=== PATIENT | female | born 1970 | race Caucasian/White ===

== ENCOUNTER 2021-05-26 15:47 | Outpatient (REF) | payer BC, SELFPAY ==
[2021-05-28 11:01] LABS: COVID-19 RT-PCR UVMMC Result Negative (Negative)
== END 2021-05-26 15:48 | disposition home or self-care (01) ==
LOC: LBN 15:47
PROVIDERS: Visit Provider Physician Assistant Medical
DX: Z20.822 Contact with and (suspected) exposure to COVID-19 (principal); J06.9 Acute upper respiratory infection, unspecified
CPT/HCPCS: U0003

== ENCOUNTER 2021-06-23 05:50 | Observation (INO) | payer BC, SELFPAY ==
[2021-06-23] VITALS (27 sets, daily range): BP systolic 109–184; BP diastolic 49–147; PULSE 69–117; RESP 8–30; TEMP 36.4–37.1; O2SAT 0–100
--- NOTE | 2021-06-23 06:00 | RT.EKG_ITS ---
APPROVED REPORT Exam: Resting ECG Reason for Exam: sob Patient Location: E HR:78 bpm ECG Measurements Heart Rate 78 AXIS IA 192 P 57 QRSd 89 QRS 55 QT 406 T 32 QTc 462 Conclusion Sinus rhythm...normal P axis, V-rate 60- 99 Physician: No stemi, unremarkable
--- NOTE | 2021-06-23 06:15 | DI.RAD_ITS ---
Exam(s) XR PORTABLE CHEST AP EXAM: XR PORTABLE CHEST AP CLINICAL HISTORY: sob, cough. TECHNIQUE: 2D digital imaging was performed. COMPARISON: No exams were available for comparison FINDINGS: Heart size is upper normal. The mediastinum is not widened. Right lung is clear. Density in left upper lobe region appears to be healing fracture site of the 6t h rib. However, there is mild increased markings in left lung base-left costophrenic angle and sligh t blunting of left costophrenic angle. IMPRESSION: Left lung base findings as above. Recommend nonportable PA and lateral views when clinically possibl e. DATA REPOSITORY: RADIATION DOSE DELIVERED: All CT scans at this facility use at least one of these dose optimization techniques: automated exposure control; mA and/or kV adjustment per patient size (includes targeted e xams where dose is matched to clinical indication); or iterative reconstruction.
--- NOTE | 2021-06-23 06:17 | W.ED.GENAD ---
Discharge Plan Disposition Patient Disposition: [facility] INPATIENT Condition: Improving Discharge Details Clinical Impression: Asthma exacerbation in COPD, Community acquired pneumonia, Hypoxemia ED Provider: Valeriano Pitts Home Meds and New Rx's Prescriptions: No Action citalopram 20 mg Tablet 20 mg PO DAILY RF: 0 albuterol sulfate [Ventolin HFA] 90 mcg/actuation Hfa Aerosol Inhaler 2 puff INHALATION Q4H PRNRF: 0 guaifenesin [Mucinex] 600 mg Tablet Extended Release 12hr 600 mg PO PRN PRNRF: 0 Medical Decision Making This is a 51-year-old female with a past medical history of mild asthma, who recently moved up here from [facility], who presents today for evaluation of cough and difficulty breathing. Patient states that for the last 2 to 3 days she has had a mild cough which has been nonproductive. Over the last 24 to 48 hours she has had a notable increased work of breathing and difficulty breathing. She has been taking her inhaler, but has had no improvement with this. She admits to a central chest pain, which she described as a tightness. Symptoms are made worse when she tries to cough her breathing deeply. Patient states that symptoms feel similar to previous asthma attacks in the past. She denies any heart disease or history of heart disease. No family history of heart disease at a young age. She does have a history of tobacco use, but did quit smoking a few days ago. She denies any other sick contacts. She has had her Covid vaccine/Pfizer/both doses. She denies any vomiting, diarrhea, long trips, surgeries, procedures, calf pain, fever. No other complaints at this time. No other modifying factors. Physical exam demonstrates diffuse wheezes throughout. On the patient's initial assessment oxygen was in the high 80s, this improved with 2 L of supplemental oxygen. Suspect asthma/COPD exacerbation. Will check for Covid, get chest x-ray, give breathing treatments and steroids, monitor closely and reassess. EKG shows no evidence of STEMI or other significant abnormality. 7:45 AM Chest x-ray per virtual radiology shows evidence concerning for atelectasis versus pneumonia. Work-up demonstrates mild white count of 14, electrolytes stable, VBG stable, troponin normal. Covid test negative. Patient remains at 90% to 92% on 2 L of supplemental oxygen. She feels slightly improved after breathing treatments but still remains mildly hypoxic. She does not use home oxygen. The patient's low oxygenation, her evidence of asthma/COPD exacerbation in conjunction with her community-acquired pneumonia I do feel she would be a good candidate for inpatient admission for continued IV antibiotics breathing treatments and supplemental oxygen as needed. Patient has been given ceftriaxone and doxycycline IV here. We will contact the hospitalist for admission. 7:50 AM Discussed the case with the hospitalist , he agrees with the assessment and plan. I will place admission orders on his behalf. I have extensively reviewed the treatment plan with the patient. I have addressed all patient concerns at this time. I have also discussed the plan with the admitting physician and they agree with the current assessment and plan and have agreed to assume responsibility for the patient. All parties demonstrate verbal understanding and agreement with our assessment and plan at this time. The documentation in this chart was dictated using [employer] dictation software. Please excuse any dictation errors. FINDINGS: Lungs: Patchy pulmonary opacity noted in the left upper lobe as well as at the lung bases. Consider atelectasis and or pneumonia. Follow-up imaging is recommended specifically for the left upper lobe process to ensure resolution as a pulmonary mass is not excluded. Pleural spaces: Unremarkable. No pleural effusion. No pneumothorax. Heart/Mediastinum: Unremarkable. No cardiomegaly. Bones/joints: Unremarkable. IMPRESSION: Patchy pulmonary opacity noted in the left upper lobe as well as at the lung bases. Consider atelectasis and or pneumonia. Follow-up imaging is recommended specifically for the left upper lobe process to ensure resolution as a pulmonary mass is not excluded. Thank you for allowing us to participate in the care of your patient. Dictated and Authenticated by: Rafael Nettles MD 06/23/2021 6:45 AM Eastern Time ([place] & [place]) HPI General Date/Time Provider Initiated Documentation: 06/23/21 06:06. HPI Narrative: This is a 51-year-old female with a past medical history of mild asthma, who recently moved up here from [facility], who presents today for evaluation of cough and difficulty breathing. Patient states that for the last 2 to 3 days she has had a mild cough which has been nonproductive. Over the last 24 to 48 hours she has had a notable increased work of breathing and difficulty breathing. She has been taking her inhaler, but has had no improvement with this. She admits to a central chest pain, which she described as a tightness. Symptoms are made worse when she tries to cough her breathing deeply. Patient states that symptoms feel similar to previous asthma attacks in the past. She denies any heart disease or history of heart disease. No family history of heart disease at a young age. She does have a history of tobacco use, but did quit smoking a few days ago. She denies any other sick contacts. She has had her HeadMix vaccine/Pfizer/both doses. She denies any vomiting, diarrhea, long trips, surgeries, procedures, calf pain, fever. No other complaints at this time. No other modifying factors. Related Data Home Medications Medication Instructions Recorded Confirmed albuterol sulfate [Ventolin HFA] 2 puff INHALATION Q4H PRN 06/23/21 06/23/21 citalopram 20 mg PO DAILY 06/23/21 06/23/21 guaifenesin [Mucinex] 600 mg PO PRN PRN 06/23/21 06/23/21 Allergies Allergy/AdvReac Type Severity Reaction Status Date / Time No Known Allergies Allergy Unverified 06/23/21 06:05 General Stated Complaint: SOB APOLLO: 3 Review of Systems All systems reviewed & are unremarkable except as noted in HPI and below PFSH Active Problem List (Updated 06/23/21 @ 07:47 by Valeriano Pitts DO) Asthma exacerbation in COPD (Acute) Community acquired pneumonia (Acute) Hypoxemia (Acute) Social History Smoking/Tobacco Use Status: Former Tobacco Use Quit Date: 06/21/21 Tobacco: How many years used: 20 Smoking risk assessment performed?: Yes Drug use: Never Substance use type: marijuana Do you feel safe at home: Yes Do you feel safe in your relationship?: Yes Exam Narrative Exam Narrative: 1.Const: Well-nourished, Well-developed, appearing stated age 2.Eyes: PERRL, no conjunctival injection, and symmetrical lids. 3.ENT: Atraumatic external nose and ears. Moist MM. Neck: Symmetric, trachea midline, No thyromegaly. 4.CVS: +S1/S2, No murmurs or gallops. Peripheral pulses 2+ and equal in all extremities. Brisk capillary refill in all extremities. 5.RESP: Diffuse wheezes throughout, mild labored respiratory effort. 6.GI: Soft, Nontender/Nondistended, No hepatosplenomegaly. No guarding or rebound. 7.MSK: Normocephalic/Atraumatic, Extremities w/o deformity or ttp No cyanosis or clubbing, Normal movement of all extremities 8.Skin: Warm, Dry. No rashes or lesions. 9.Neuro: contact center agent II-XII grossly intact. Sensation grossly intact, no focal neurologic deficits. 10.Psych: (AAO) x3. Appropriate mood and affect Course Vital Signs Vital signs: Vital Signs Temperature 36.4 C L 06/23/21 06:01 Pulse 86 06/23/21 06:01 Respiratory Rate 30 H 06/23/21 06:01 Blood Pressure 184/147 H 06/23/21 06:01 Pulse Oximetry 84 L 06/23/21 06:01 Temperature 36.4 C L 06/23/21 06:01 Temperature Source Temporal Artery Scan 06/23/21 06:01 Pulse 86 06/23/21 06:01 Respiratory Rate 30 H 06/23/21 06:07 Respiratory Effort Labored 06/23/21 06:07 Respiratory Depth Deep 06/23/21 06:07 Respiratory Pattern Tachypnea 06/23/21 06:07 Blood Pressure 184/147 H 06/23/21 06:01 Blood Pressure Position Sitting 06/23/21 06:01 Pulse Oximetry 84 L 06/23/21 06:01 Oxygen Delivery Method Room Air 06/23/21 06:01 Oxygen Flow Rate 0 06/23/21 06:01 Pain Level 8 06/23/21 06:01
[2021-06-23 06:28] LABS: Source Nasal/Nares
[2021-06-23 06:30] LABS: BE (Venous) 2 mmol/L (-2-3); HCO3 (Venous) 28 mmol/L (23-28); O2 Sat (Venous) 58 %; TCO2 (Venous) 25 mmol/L (24-29); pCO2 (Venous) 50 mmHg (41-51); pH (Venous) 7.36 (7.31-7.41); pO2 (Venous) 32 mmHg
[2021-06-23] MEDS: Normal Saline 500 ML IV (06:30)
[2021-06-23 06:32] LABS: Abs Immature Grans 0.09 10^3/uL (0.0-0.06); Absolute Basophil Count 0.13 10^3/uL (0.0-0.2); Absolute Eosinophil Count 0.78 10^3/uL (0.0-0.7); Absolute Lymphocyte Count 2.51 10^3/uL (1.2-3.4); Absolute Monocyte Count 0.97 10^3/uL (0.1-0.8); Basophils % 0.9; Eosinophils % 5.4; HCT 43.4 % (36.0-46.0); Immature Grans % 0.6; Lymphocytes % 17.3; MCH 30.8 pg (27.0-33.0); MCHC 32.3 % (32.0-36.0); MCV 95.6 fL (80-95); MPV 9.6 fL (8.0-11.0); Monocytes % 6.7; Neutrophils % 69.1; Nucleated RBC 0 %; Platelet Count 345 10^3/uL (130-400); RBC 4.54 10^6/uL (3.93-5.22); RDW 13.2 % (11.7-14.6); RDW-SD 46.5 fL; WBC 14.53 10^3/uL (4.4-10.8)
[2021-06-23 06:33] LABS: Absolute Neutrophil Count 10.04 10^3/uL (1.2-6.7)
[2021-06-23] MEDS: methylPREDNISolone SUCC 125 MG VIAL IVP (06:36)
[2021-06-23] MEDS: Albuterol/Ipratropium 3 ML UPD VIAL 9 ML UPD (06:37)
--- NOTE | 2021-06-23 06:46 | DI.VRAD_ITS ---
PROCEDURE INFORMATION: Exam: XR Chest Exam date and time: 06/23/2021 6:16 AM Age: 51 years old Clinical indication: Other: SOB TECHNIQUE: Imaging protocol: XR of the chest. Views: 1 view. COMPARISON: No relevant prior studies available. FINDINGS: Lungs: Patchy pulmonary opacity noted in the left upper lobe as well as at the lung bases. Consider atelectasis and or pneumonia. Follow-up imaging is recommended specifically for the left upper lobe process to ensure resolution as a pulmonary mass is not excluded. Pleural spaces: Unremarkable. No pleural effusion. No pneumothorax. Heart/Mediastinum: Unremarkable. No cardiomegaly. Bones/joints: Unremarkable. IMPRESSION: Patchy pulmonary opacity noted in the left upper lobe as well as at the lung bases. Consider atelectasis and or pneumonia. Follow-up imaging is recommended specifically for the left upper lobe process to ensure resolution as a pulmonary mass is not excluded. Dictated and Authenticated by: Rafael Nettles MD. Ordering:JULIÁN Bal MD
[2021-06-23 06:48] LABS: ALT 30 U/L (14-59); AST 22 U/L (15-37); Albumin 3.9 g/dL (3.4-5.0); Alkaline Phosphatase 75 U/L (46-116); Anion Gap 10.2 mmol/L (3-11); BUN 13 mg/dL (7-18); Bilirubin, Total 0.9 mg/dL (0.2-1.0); CO2 27.8 mmol/L (21.0-32.0); CREATININE 0.7 mg/dL (0.55-1.02); Calcium 9.2 mg/dL (8.5-10.1); Chloride 102 mmol/L (98-107); Glucose 114 mg/dL (74-106); Potassium 4.2 mmol/L (3.5-5.1); Sodium 140 mmol/L (136-145); Total Protein 8.3 g/dL (6.4-8.2)
[2021-06-23 06:50] LABS: Troponin I < 0.05 ng/mL (<0.06)
[2021-06-23] MEDS: cefTRIAXone 2 GM/50 ML BAG IVPB (07:21)
[2021-06-23 07:22] LABS: COVID-19 PCR Negative (Negative)
[2021-06-23] MEDS: DOXYCYCLINE 100 MG in Normal Saline 100 ML IVPB (07:53)
--- NOTE | 2021-06-23 09:43 | W.PM.HP.N ---
Date of service: 06/23/21 Time of Service: 14:15 Assessment and Plan Assessment and plan (1) Hypoxemia: Start date: 06/23/21 Start time: 15:52 Status: Acute Assessment and plan: Suspect COPD, she has never had a PFT, will need one as an outpatient with a pulmonary referral. For now will treat CAP with doxy and ceftrixone Updrafts, albuterol prednisone, symbicort sputum cx mucinex acapella/IS wean off oxygen (2) Community acquired pneumonia: Start date: 06/23/21 Start time: 15:55 Status: Acute Assessment and plan: as above Qualifiers: Laterality: left Lung location: upper lobe of lung Qualified Code(s): J18.9 - Pneumonia, unspecified organism (3) COPD with acute exacerbation: Start date: 06/23/21 Start time: 15:55 Status: Suspected Assessment and plan: Will need formal PFT smokes under 1 pack a day x 20 years quit 2 days ago discussed with Dr. Prieto History of Present Illness History of Present Illness Chief Complaint: Pneumonia, Smoker Narrative: 51 y.o female with no significant PMH, smoker who presents today with one day of cough, congestion, chest tightness. Labs in ED reveal WBC of 14. otherwise unremarkable. CXR reveal healing right rib fx, Patchy pulmonary opacity noted in the left upper lobe as well as at the lungbases. Consider atelectasis and or pneumonia. Follow-up imaging is recommendedspecifically for the left upper lobe process to ensure resolution as a pulmonary mass is not excluded. She is a smoker, smoking under one pack a day. She was hypoxic in the ED. She has never had a PFT and been diagnosed with COPD. She has been asked to be admitted for further management by hospitalist service. Flu negative, initiated on ceftriaxone and doxy for CAP. Mucinex, albuterol, updrafts prn, prednisone, IS acapella, sputum cx., symbicort, patient states she is already feeling better. COVID negative. No sick contacts. Vaccinated and works as [employer]. She denies CP, n/v/d. Review of Systems All systems reviewed & are unremarkable except as noted in HPI and below PFSH Active Problem List Asthma exacerbation in COPD (Acute) Community acquired pneumonia (Acute) Hypoxemia (Acute) Social History Smoking/Tobacco Use Status: Former Tobacco Use Quit Date: 06/21/21 Tobacco: How many years used: 20 Smoking risk assessment performed?: Yes Drug use: Never Substance use type: marijuana Do you feel safe at home: Yes Do you feel safe in your relationship?: Yes Meds Allergies and Home Medications Allergies Allergy/AdvReac Type Severity Reaction Status Date / Time No Known Allergies Allergy Unverified 06/23/21 06:05 Home Medications Medication Instructions Recorded Confirmed Type albuterol sulfate [Ventolin HFA] 2 puff INHALATION Q4H PRN 06/23/21 06/23/21 History citalopram 20 mg PO DAILY 06/23/21 06/23/21 History guaifenesin [Mucinex] 600 mg PO PRN PRN 06/23/21 06/23/21 History Exam Const General: cooperative, comfortable and no acute distress Nutritional Appearance: obese Orientation: alert, awake and oriented x3 Eyes Eyelids: eyelids normal Pupils: PERRL EOM: EOM intact bilaterally Neck Neck: normal visual inspection and no JVD Lymphatic: no lymphadenopathy noted Resp Effort & Inspection: normal respiratory effort Auscultation: diminished lung sounds Cardio Jugular venous pressure: no JVD Rhythm: regular rhythm Heart Sounds: S1 normal GI Auscultation: normal bowel sounds General: No CVA tenderness and deferred Skin General skin exam: no rashes or lesions noted Neuro General: patient alert, patient awake and patient oriented x3 Cognition: normal cognition Speech: speech normal Gait: normal gait Extrem General: normal to inspection, full ROM and no clubbing, cyanosis or edema Results Labs Result diagrams: 06/23/21 06:20 06/23/21 06:20 Labs: Laboratory Results - last 24 hr 06/23/21 06/23/21 06/23/21 06:20 06:20 06:20 WBC 14.53 H RBC 4.54 Hgb 14.0 Hct 43.4 MCV 95.6 H MCH 30.8 MCHC 32.3 RDW 13.2 Plt Count 345 MPV 9.6 Immature Gran % 0.6 Neutrophils % 69.1 Lymphocytes % 17.3 Monocytes % 6.7 Eosinophils % 5.4 Basophils % 0.9 Nucleated RBC % 0 Absolute Neutrophils 10.04 H Absolute Lymphocytes 2.51 Absolute Monocytes 0.97 H Absolute Eosinophils 0.78 H Absolute Basophils 0.13 VBG pH VBG pCO2 VBG pO2 VBG HCO3 VBG Total CO2 VBG O2 Saturation VBG Base Excess Sodium 140 Potassium 4.2 Chloride 102 Carbon Dioxide 27.8 Anion Gap 10.2 BUN 13 Creatinine 0.7 Estimated GFR/1.73 m2 >= 60.00 Glucose 114 H Calcium 9.2 Total Bilirubin 0.9 AST 22 ALT 30 Alkaline Phosphatase 75 Troponin I < 0.05 Total Protein 8.3 H Albumin 3.9 COVID-19 Source Nasal/Nares SARS-CoV-2 (PCR) Negative 06/23/21 06:20 WBC RBC Hgb Hct MCV MCH MCHC RDW Plt Count MPV Immature Gran % Neutrophils % Lymphocytes % Monocytes % Eosinophils % Basophils % Nucleated RBC % Absolute Neutrophils Absolute Lymphocytes Absolute Monocytes Absolute Eosinophils Absolute Basophils VBG pH 7.36 VBG pCO2 50 VBG pO2 32 VBG HCO3 28 VBG Total CO2 25 VBG O2 Saturation 58 VBG Base Excess 2 Sodium Potassium Chloride Carbon Dioxide Anion Gap BUN Creatinine Estimated GFR/1.73 m2 Glucose Calcium Total Bilirubin AST ALT Alkaline Phosphatase Troponin I Total Protein Albumin COVID-19 Source SARS-CoV-2 (PCR) Last Vital Signs Temp 37.1 C 06/23/21 09:24 Pulse 106 H 06/23/21 09:24 Resp 22 06/23/21 09:24 BP 144/90 H 06/23/21 09:24 Pulse Ox 94 06/23/21 09:24
[2021-06-23] MEDS: Enoxaparin 40 MG/0.4 ML SYR SC (12:00)
[2021-06-23] MEDS: predniSONE 20 MG TAB 40 MG PO (12:00)
[2021-06-23] MEDS: Budesonide/Formoterol 80/4.5 6.9 GM 60 PUFF INH IH ×2 (13:00→20:14)
[2021-06-23] MEDS: Acetaminophen 325 MG TAB PO (16:36)
--- NOTE | 2021-06-23 17:46 | CHAPLAIN ---
Ysabel was resting in bed when I visited. 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 She was a little teary while were speaking and she said she wasn't sure why she was crying, but that it's strange to be on the other side being in a hospital bed. She has been in touch with family by phone but was disappointed that family members can't visit. She didn't explain why. I will continue to visit.
[2021-06-23] MEDS: guaiFENesin 600 MG TABCR PO (20:13)
[2021-06-23] MEDS: Doxycycline Hyclate 100 MG CAP PO (20:14)
[2021-06-23] MEDS: Albuterol/Ipratropium 3 ML UPD VIAL UPD (20:23)
[2021-06-23 23:40] LABS: Legionella Ag Detection Urine Negative (Negative)
[2021-06-24 06:20] VITALS: O2SAT 95
[2021-06-24 07:14] LABS: Abs Immature Grans 0.16 10^3/uL (0.0-0.06); Absolute Monocyte Count 1.48 10^3/uL (0.1-0.8); Basophils % 0.2; HCT 42.3 % (36.0-46.0); HGB 13.7 g/dL (11.2-15.7); Immature Grans % 0.7; Lymphocytes % 12.4; MCH 30.6 pg (27.0-33.0); MCHC 32.4 % (32.0-36.0); MCV 94.6 fL (80-95); MPV 10.1 fL (8.0-11.0); Monocytes % 6.6; Neutrophils % 80.1; Nucleated RBC 0 %; Platelet Count 350 10^3/uL (130-400); RBC 4.47 10^6/uL (3.93-5.22); RDW 13.4 % (11.7-14.6); RDW-SD 46.4 fL; WBC 22.44 10^3/uL (4.4-10.8)
[2021-06-24 07:21] LABS: Absolute Basophil Count 0.04 10^3/uL (0.0-0.2); Absolute Lymphocyte Count 2.78 10^3/uL (1.2-3.4); Absolute Neutrophil Count 17.97 10^3/uL (1.2-6.7)
[2021-06-24 07:35] LABS: Anion Gap 9.2 mmol/L (3-11); BUN 11 mg/dL (7-18); CO2 25.8 mmol/L (21.0-32.0); CREATININE 0.6 mg/dL (0.55-1.02); Calcium 9.3 mg/dL (8.5-10.1); Chloride 105 mmol/L (98-107); Glucose 106 mg/dL (74-106); Magnesium 1.9 mg/dL (1.8-2.4); Potassium 3.7 mmol/L (3.5-5.1); Sodium 140 mmol/L (136-145)
[2021-06-24] MEDS: predniSONE 20 MG TAB 40 MG PO (07:39)
[2021-06-24] MEDS: Doxycycline Hyclate 100 MG CAP PO (07:39)
[2021-06-24] MEDS: guaiFENesin 600 MG TABCR PO ×2 (07:39→20:24)
[2021-06-24] MEDS: Citalopram 20 MG TAB PO (07:39)
[2021-06-24] MEDS: cefTRIAXone 1 GM/50 ML BAG IVPB (07:41)
[2021-06-24] MEDS: Acetaminophen 325 MG TAB PO (07:42)
[2021-06-24] MEDS: Normal Saline 500 ML 30 ML IV (07:43)
[2021-06-24] MEDS: Normal Saline Flush 10 ML SYR IVP (07:44)
[2021-06-24 08:27] VITALS: RESP 4
[2021-06-24] MEDS: Albuterol/Ipratropium 3 ML UPD VIAL UPD (08:27)
[2021-06-24 08:28] VITALS: RESP 4
[2021-06-24] MEDS: Budesonide/Formoterol 80/4.5 6.9 GM 60 PUFF INH IH ×2 (08:28→20:24)
[2021-06-24] MEDS: Enoxaparin 40 MG/0.4 ML SYR SC (10:44)
[2021-06-24] MEDS: guaiFENesin/CODEINE PHOSPHATE 10 ML CUP 5 ML PO (12:40)
[2021-06-24] MEDS: levoFLOXacin 750 MG/150 ML BAG 100 MG IVPB (13:21)
[2021-06-24 13:44] VITALS: O2SAT 96
--- NOTE | 2021-06-24 14:45 | PHA.REVIEW ---
Pharmacy Admission Review - Admission Clinical Review (Last Reviewed 06/23/21 @ 15:50 by Radha Laird NP) Asthma exacerbation in COPD (Acute) Community acquired pneumonia (Acute) Hypoxemia (Acute) No Known Allergies Allergy (Unverified 06/23/21 06:05) Resuscitation Status Full Code Height 5 ft 5 in Weight 86.183 kg - Renal Dosing Renal Dosing: BUN 11 mg/dL (7-18) 06/24/21 06:20 Creatinine 0.6 mg/dL (0.55-1.02) 06/24/21 06:20 Medications needing adjustments: Reviewed (Crcl ~123 mL/min using adjusted body weight. Current meds okay.) - Anticoagulation Anticoagulation: Hgb 13.7 g/dL (11.2-15.7) 06/24/21 06:20 Hct 42.3 % (36.0-46.0) 06/24/21 06:20 Plt Count 350 10^3/uL (130-400) 06/24/21 06:20 Creatinine 0.6 mg/dL (0.55-1.02) 06/24/21 06:20 DVT Prophylaxis: Reviewed Medications: Enoxaparin Therapeutic Anticoagulation: N/A - Opiate Usage Evaluate Pain Scale/Pains Meds: Reviewed Scheduled Bowel Reg ordered if on Opiates?: No (Has PRN meds ordered) - Relevant Labs Sodium 140 mmol/L (136-145) 06/24/21 06:20 Potassium 3.7 mmol/L (3.5-5.1) 06/24/21 06:20 Chloride 105 mmol/L (98-107) 06/24/21 06:20 Magnesium 1.9 mg/dL (1.8-2.4) 06/24/21 06:20 Electrolytes, C-Reactive P, ESR: Reviewed - DM Control DM Control: Glucose 106 mg/dL (74-106) 06/24/21 06:20 Insulin Dosing: N/A - Heart Failure/MO Heart Failure/MO: Troponin I < 0.05 ng/mL (<0.06) 06/23/21 06:20 EF%, ALAN's, B-Blockers, Diuretics: Reviewed - BP Control If elevated: Reviewed (No BP documented yet today, yesterday BP was up and down some.) - Qtc Review If Elevated: N/A (QTc 462 on admission) - IV to PO Switch IV Medications: Reviewed - Home Meds Home Med List reviewed: Reviewed Relevent Home Meds Not ordered & why?: All meds on home med list are currently ordered. - Current meds Current Medication Order Review: Reviewed - Comments Comments/Follow Ups: Watch BP, labs, for culture results and for med changes (possible need of additional BM meds). Antibiotic Activity - Pharmacy Antibiotic Review Pharmacy Antibiotic Activity: Abx regimen adjustment (Ceftriaxone and doxy changed to levofloxacin. Blood cultures pending, sputum culture growing gram positive cocci and rods.)
--- NOTE | 2021-06-24 16:04 | W.PM.PROGNOT ---
Date of Service Date of service: 06/24/21 Time of Service: 16:04 Assessment and Plan Assessment and plan (1) Hypoxemia: Start date: 06/24/21 Start time: 12:15 Status: Acute Assessment and plan: Suspect COPD, she has never had a PFT, will need one as an outpatient with a pulmonary referral. Switched antibitics to levaquin. Gram positive cocci in sputum, not feeling better. Appears to be more bronchitis then pneumonia. She did say sputum was emerson. Cough now dry hacking continue: Updrafts, albuterol prednisone, symbicort mucinex, add robitussin with codeine for comfort. acapella/IS wean off oxygen (2) Community acquired pneumonia: Start date: 06/24/21 Start time: 16:15 Status: Suspected Assessment and plan: as above Qualifiers: Laterality: left Lung location: upper lobe of lung Qualified Code(s): J18.9 - Pneumonia, unspecified organism (3) COPD with acute exacerbation: Start date: 06/24/21 Start time: 16:49 Status: Suspected Assessment and plan: Will need formal PFT smokes under 1 pack a day x 20 years quit 2 days ago discussed with Dr. Prieto Subjective Subjective Patient reports: other Interval history since last seen: Not feeling any better. Sputum growing gram positive cocci, gram positive estefania. Dry hacking cough. Switched to Levaquin. Robitussin with codeine added for comfort. She is still requiring oxygen. Continue to monitor. Denies CP. Exam Const General: cooperative, comfortable and no acute distress Nutritional Appearance: obese Orientation: alert, awake and oriented x3 Eyes Eyelids: eyelids normal Pupils: PERRL EOM: EOM intact bilaterally Neck Neck: normal visual inspection and no JVD Lymphatic: no lymphadenopathy noted Resp Effort & Inspection: normal respiratory effort Auscultation: diminished lung sounds Cardio Jugular venous pressure: no JVD Rhythm: regular rhythm Heart Sounds: S1 normal GI Auscultation: normal bowel sounds General: No CVA tenderness and deferred Skin General skin exam: no rashes or lesions noted Neuro General: patient alert, patient awake and patient oriented x3 Cognition: normal cognition Speech: speech normal Gait: normal gait Extrem General: normal to inspection, full ROM and no clubbing, cyanosis or edema Objective Last Vital Signs Temp 36.7 C 06/23/21 23:05 Pulse 92 H 06/23/21 23:05 Resp 18 06/23/21 23:05 BP 134/77 06/23/21 23:05 Pulse Ox 96 06/24/21 13:44 Laboratory Results - last 24 hr 06/23/21 06/24/21 06/24/21 11:10 06:20 06:20 WBC 22.44 H D RBC 4.47 Hgb 13.7 Hct 42.3 MCV 94.6 MCH 30.6 MCHC 32.4 RDW 13.4 Plt Count 350 MPV 10.1 Immature Gran % 0.7 Neutrophils % 80.1 Lymphocytes % 12.4 Monocytes % 6.6 Eosinophils % 0.0 Basophils % 0.2 Nucleated RBC % 0 Absolute Neutrophils 17.97 H Absolute Lymphocytes 2.78 Absolute Monocytes 1.48 H Absolute Eosinophils 0.00 Absolute Basophils 0.04 Sodium 140 Potassium 3.7 Chloride 105 Carbon Dioxide 25.8 Anion Gap 9.2 BUN 11 Creatinine 0.6 Estimated GFR/1.73 m2 >= 60.00 Glucose 106 Calcium 9.3 Magnesium 1.9 Urine Legionella Ag Negative
[2021-06-24 16:22] VITALS: BP 134/83; PULSE 85; RESP 20; TEMP 36.5; O2SAT 95
--- NOTE | 2021-06-24 17:29 | CHAPLAIN ---
I had a short visit with Ysabel this afternoon, after a longer visit yesterday. She said she is very much missing family members who can't visit for some reason (maybe Covid restrictions), but is in touch with them by phone. She has a stressful job and is trying to relax while she's here. She said her boss cleared her off the schedule for this weekend.
--- NOTE | 2021-06-24 19:33 | INITIAL_ITS ---
- If Service Date Differs Date of service: 06/24/21 Time of Service: 19:35 Care Management Initial Assess REASON FOR HOSPITALIZATION:: Asthma and Pneumonia PAST MEDICAL HISTORY/PAST SURGICAL HISTORY:: Asthma exacerbation in COPD (Acute). Community acquired pneumonia (Acute). Hypoxemia (Acute) PREVIOUS FUNCTIONAL STATUS/SOCIAL/FAMILY SUPPORTS:: Ysabel resides in [facility] with her SO, Mo. She is independent at baseline and works at [employer] in [place], [place]. CURRENT FUNCTIONAL STATUS:: Ysabel is lying in bed, she shares appreciation for her care and recognizes the staff as treating her very well. She shares appreciation for the food as well. She shares no concerns at this time and understands her treatment plan. ADVANCE DIRECTIVES:: None on file. Has patient been provided with info about the portal/API?: Yes CODE STATUS:: Full Code INSURANCE COVERAGE / FINANCIAL ISSUES:: BC/BS PRIMARY CARE PHYSICIAN:: Rickie Mc POTENTIAL DISCHARGE NEEDS:: Pulmonology f/u appt, new respiratory med; Symbicort. PATIENT/FAMILY EDUCATION NEEDS:: Review of discharge instructions, discuss Ask Me Three. ANTICIPATED BARRIERS TO DISCHARGE:: None identified. TRANSPORTATION:: Via private vehicle with her SO. PLAN:: Ysabel will return home when ready per MD. She will follow up with her PCP and plan of care as prescribed including Pulmonology f/u appt with Dr. Velasco, and new respiratory med; Symbicort. She will transport via private vehicle with her significant other, Juan Carlos.
[2021-06-24 20:10] VITALS: O2SAT 98
[2021-06-25] MEDS: guaiFENesin/CODEINE PHOSPHATE 10 ML CUP 5 ML PO (00:47)
[2021-06-25 01:40] VITALS: BP 129/87; PULSE 72; RESP 20; TEMP 36.3; O2SAT 94
[2021-06-25 07:02] LABS: Abs Immature Grans 0.13 10^3/uL (0.0-0.06); Absolute Lymphocyte Count 4.88 10^3/uL (1.2-3.4); Absolute Neutrophil Count 10.12 10^3/uL (1.2-6.7); Basophils % 0.5; Eosinophils % 1.3; HGB 13.2 g/dL (11.2-15.7); Immature Grans % 0.8; Lymphocytes % 29.6; MCH 31.1 pg (27.0-33.0); MCHC 32.2 % (32.0-36.0); MCV 96.5 fL (80-95); Monocytes % 6.4; Neutrophils % 61.4; Nucleated RBC 0 %; Platelet Count 329 10^3/uL (130-400); RBC 4.25 10^6/uL (3.93-5.22); RDW 13.5 % (11.7-14.6); RDW-SD 47.8 fL; WBC 16.49 10^3/uL (4.4-10.8)
[2021-06-25 07:04] LABS: Absolute Basophil Count 0.08 10^3/uL (0.0-0.2); Absolute Eosinophil Count 0.21 10^3/uL (0.0-0.7); Absolute Monocyte Count 1.06 10^3/uL (0.1-0.8)
[2021-06-25 07:15] LABS: Anion Gap 10.9 mmol/L (3-11); BUN 14 mg/dL (7-18); CO2 25.1 mmol/L (21.0-32.0); CREATININE 0.8 mg/dL (0.55-1.02); Calcium 8.8 mg/dL (8.5-10.1); Chloride 105 mmol/L (98-107); Glucose 96 mg/dL (74-106); Potassium 3.6 mmol/L (3.5-5.1); Sodium 141 mmol/L (136-145)
[2021-06-25] MEDS: guaiFENesin 600 MG TABCR PO (07:30)
[2021-06-25] MEDS: predniSONE 20 MG TAB 40 MG PO (07:31)
[2021-06-25] MEDS: Normal Saline Flush 10 ML SYR IVP (07:31)
[2021-06-25] MEDS: Citalopram 20 MG TAB PO (07:31)
[2021-06-25 07:43] LABS: Procalcitonin < 0.1 ng/mL
[2021-06-25 08:05] VITALS: BP 134/81; PULSE 77; RESP 20; TEMP 37; O2SAT 94
[2021-06-25] MEDS: Budesonide/Formoterol 80/4.5 6.9 GM 60 PUFF INH IH (08:25)
[2021-06-25] MEDS: Enoxaparin 40 MG/0.4 ML SYR SC (10:18)
--- NOTE | 2021-06-25 10:26 | W.PM.DS.N ---
Date of service: 06/25/21 Time of Service: 10:26 DS: Diagnosis Discharge Diagnosis (1) Hypoxemia: Start date: 06/25/21 Start time: 10:30 Status: Resolved Asessment and Plan: No longer requiring oxygen. Patient is on room. (2) Community acquired pneumonia: Start date: 06/25/21 Start time: 10:31 Status: Suspected Asessment and Plan: Procal negative. Suspect this is more likely to COPD with brochitis Patient states she had a emerson discoloration of sputum. No formal diagnosis of COPD. She will need outpatient testing of PFT for formal diagnosing. Will refer to pulmonary. Will treat with levaquin x 5 more days due to sputum with gram positive cocci Will continue steroid burst. Elevated WBC likely due to steroids. Overall feels well Would like to be go home. Will discharge home F/u with PCP in 2 weeks, will need repeat CXR in 6 weeks (3) COPD with acute exacerbation: Start date: 06/25/21 Start time: 10:39 Status: Suspected Asessment and Plan: as above, f/u with Pulmonary to get formal diagnosis discussed with Dr. Davis Discharge Plan Disposition Patient Disposition: HOME Condition: Improving Discharge Details Reason For Visit: Asthma and Pneumonia Admit Date/Time: 06/23/21 07:49 Admit Provider: Juan Carlos Prieto Attending Provider: Juan Carlos Prieto Primary Care Provider: Rickie Mc Hospital Course Hospital Course: 51 y.o female with no significant PMH, smoker who was admitted with one day of cough, congestion, chest tightness. Labs in ED reveal WBC of 14. otherwise unremarkable. CXR reveal healing right rib fx, Patchy pulmonary opacity noted in the left upper lobe as well as at the lung bases; however review of imaging does not appear to look like pneumonia and procal negative. Afebile. Consider atelectasis. Follow-up imaging is recommended specifically for the left upper lobe process to ensure resolution as a pulmonary mass is not excluded. She is a smoker, smoking under one pack a day. She was hypoxic in the ED. She has never had a PFT for diagnosis of COPD. She was asked to be admitted for further management by hospitalist service. Flu negative, initiated on ceftriaxone and doxy for CAP however sputum cx was collected and grew gram positive cocci, therefore she was switched to leqaquin po. She was placed on Mucinex, albuterol, updrafts prn, prednisone, IS acapella and symbicort. She had a harsh non productive cough yesterday and was started on robitussin with AC which she states has been helpful. She is feeling much better no longer requiring oxygen and feels well enough to go home. She will continue another 5 days of levaquing with another 4 days of steroids. Continue symbicort. Follow up as an outpateint with pulmonary and PCP repeat cxr in 6 weeks. Work note until Sunday. Home Meds and New Rx's Prescriptions: New albuterol sulfate [ProAir HFA] 90 mcg/actuation HFA aerosol inhaler 2 puff inhalation QID PRNQty: 8.5 RF: 0 budesonide-formoterol 80-4.5 mcg/actuation HFA aerosol inhaler 2 puff inhalation BID Qty: 10.2 RF: 0 codeine-guaifenesin 10-100 mg/5 mL Liquid 5 ml PO Q6H PRNQty: 118 RF: 0 guaifenesin [Mucinex] 600 mg Tablet Extended Release 12hr 600 mg PO BID Qty: 20 RF: 0 levofloxacin 750 mg tablet 750 mg PO DAILY Qty: 5 RF: 0 prednisone 20 mg Tablet 40 mg PO DAILY Qty: 8 RF: 0 Continued citalopram 20 mg Tablet 20 mg PO DAILY RF: 0 albuterol sulfate [Ventolin HFA] 90 mcg/actuation Hfa Aerosol Inhaler 2 puff INHALATION Q4H PRNRF: 0 Discontinued guaifenesin [Mucinex] 600 mg Tablet Extended Release 12hr 600 mg PO PRN PRNRF: 0 Discharge Instructions Instructions: How to Stop Smoking (DC), Cigarette Smoking and Your Health (GEN), Acute Bronchitis (GEN), COPD (Chronic Obstructive Pulmonary Disease) (GEN), Hypoxia (GEN), Chronic Lung Disease and Infection Prevention (DC) Additional Instructions: Take levaquin daily starting tomorrow you received todays dose Start prednisone tomorrow you took todays dose Continue to not smoke Follow up with your PCP we will call you on Sunday with time and date 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 Continue to use incentive spirometery while watching TV every commercial break or 10 times an hour Work note until Sunday you may return then. Rest, drink plenty of fluids Repeat CXR in 6 weeks . Stand Alone Forms: Nursing Discharge Form Activity:: Activity as Tolerated Equipment/Supplies:: No Equipment Needed Diet:: As Tolerated Discharge Orders Discharge Orders: Discharge Order (Routine); Ordered 06/25/21 Ordered By: Radha Laird DS: Summary Time Spent with Patient providing and/or coordinating discharge services: Greater than 30 minutes Status at Discharge Functional status at discharge: independent ambulation Overall status at discharge: patient is progressing back to baseline Mental Status: mental status grossly normal Speech and Movement: speech and movement normal Mood: congruent mood Affect: normal affect Exam Psych Mental Status: mental status grossly normal Speech and Movement: speech and movement normal Mood: congruent mood Affect: normal affect DS: Data Vitals/I&O Vitals and I&O: Vital Signs Temperature 37.0 C 06/25/21 08:05 Temperature Source Tympanic 06/25/21 08:05 Pulse 77 06/25/21 08:05 Pulse Rhythm Regular 06/25/21 07:30 Pulse 117 H 06/23/21 08:20 Respiratory Rate 20 06/25/21 08:05 Respiratory Effort Non-Labored 06/25/21 07:30 Respiratory Depth Normal 06/25/21 07:30 Respiratory Pattern Normal 06/25/21 07:30 Blood Pressure 134/81 06/25/21 08:05 Blood Pressure Mean 75 06/23/21 08:16 Blood Pressure Position Sitting 06/23/21 06:01 Pulse Oximetry 94 06/25/21 08:05 Oxygen Delivery Method Room Air 06/25/21 08:05 Oxygen Flow Rate 0 06/25/21 08:05 Pain Level 0 06/24/21 16:22 Comment 06/24/21 13:44 Intake & Output 06/24/21 06/24/21 06/25/21 11:59 23:59 11:59 Intake Total 320 / 1610.5 1290.5 / 1610.5 370 / 370 Balance 320 / 1610.5 1290.5 / 1610.5 370 / 370 Intake: IV 410.5 / 410.5 Oral 320 / 1200 880 / 1200 370 / 370 Other: Urine Appearance Clear Clear Clear Comment pt uses toilet independently at this time. Patient independent to the bathroom Voiding Methods Toilet Toilet Data Completed and Pending Completed studies during hospitalization [Text1]: Exam(s) XR PORTABLE CHEST AP EXAM: XR PORTABLE CHEST AP CLINICAL HISTORY: sob, cough. TECHNIQUE: 2D digital imaging was performed. COMPARISON: No exams were available for comparison FINDINGS: Heart size is upper normal. The mediastinum is not widened. Right lung is clear. Density in left upper lobe region appears to be healing fracture site of the 6th rib. However, there is mild increased markings in left lung base-left costophrenic angle and slight blunting of left costophrenic angle. IMPRESSION: Left lung base findings as above. Recommend nonportable PA and lateral views when clinically possible. : 1970Age: 51 Exam(s) PROCEDURE INFORMATION: Exam: XR Chest Exam date and time: 06/23/2021 6:16 AM Age: 51 years old Clinical indication: Other: SOB TECHNIQUE: Imaging protocol: XR of the chest. Views: 1 view. COMPARISON: No relevant prior studies available. FINDINGS: Lungs: Patchy pulmonary opacity noted in the left upper lobe as well as at the lung bases. Consider atelectasis and or pneumonia. Follow-up imaging is recommended specifically for the left upper lobe process to ensure resolution as a pulmonary mass is not excluded. Pleural spaces: Unremarkable. No pleural effusion. No pneumothorax. Heart/Mediastinum: Unremarkable. No cardiomegaly. Bones/joints: Unremarkable. IMPRESSION: Patchy pulmonary opacity noted in the left upper lobe as well as at the lung bases. Consider atelectasis and or pneumonia. Follow-up imaging is recommended specifically for the left upper lobe process to ensure resolution as a pulmonary mass is not excluded. : 1970Age: 51 Exam(s) PROCEDURE INFORMATION: Exam: XR Chest Exam date and time: 06/23/2021 6:16 AM Age: 51 years old Clinical indication: Other: SOB TECHNIQUE: Imaging protocol: XR of the chest. Views: 1 view. COMPARISON: No relevant prior studies available. FINDINGS: Lungs: Patchy pulmonary opacity noted in the left upper lobe as well as at the lung bases. Consider atelectasis and or pneumonia. Follow-up imaging is recommended specifically for the left upper lobe process to ensure resolution as a pulmonary mass is not excluded. Pleural spaces: Unremarkable. No pleural effusion. No pneumothorax. Heart/Mediastinum: Unremarkable. No cardiomegaly. Bones/joints: Unremarkable. IMPRESSION: Patchy pulmonary opacity noted in the left upper lobe as well as at the lung bases. Consider atelectasis and or pneumonia. Follow-up imaging is recommended specifically for the left upper lobe process to ensure resolution as a pulmonary mass is not excluded. Labs on day of discharge: Labs from last 24 hours 06/25/21 06/25/21 06/25/21 06:20 06:20 06:20 WBC 16.49 H RBC 4.25 Hgb 13.2 Hct 41.0 MCV 96.5 H MCH 31.1 MCHC 32.2 RDW 13.5 Plt Count 329 MPV 10.0 Immature Gran % 0.8 Neutrophils % 61.4 Lymphocytes % 29.6 Monocytes % 6.4 Eosinophils % 1.3 Basophils % 0.5 Nucleated RBC % 0 Absolute Neutrophils 10.12 H Absolute Lymphocytes 4.88 H Absolute Monocytes 1.06 H Absolute Eosinophils 0.21 Absolute Basophils 0.08 Sodium 141 Potassium 3.6 Chloride 105 Carbon Dioxide 25.1 Anion Gap 10.9 BUN 14 Creatinine 0.8 Estimated GFR/1.73 m2 >= 60.00 Glucose 96 Calcium 8.8 Magnesium 2.0 Procalcitonin < 0.1 06/24/21 13:10 Blood Blood Culture - Pending 06/24/21 13:05 Blood Blood Culture - Pending Preliminary micro results at discharge 06/23/21 12:42 Sputum Culture - Preliminary Sputum - Expectorated Normal Miri 06/24/21 13:10 Blood Culture - Pending Blood 06/24/21 13:05 Blood Culture - Pending Blood [facility] Active Problem List Asthma exacerbation in COPD (Acute) Community acquired pneumonia (Acute) Hypoxemia (Acute) Social History Smoking/Tobacco Use Status: Former Tobacco Use Quit Date: 06/21/21 Tobacco: How many years used: 20 Smoking risk assessment performed?: Yes Drug use: Never Substance use type: marijuana Do you feel safe at home: Yes Do you feel safe in your relationship?: Yes
[2021-06-25] MEDS: levoFLOXacin 500 MG, levoFLOXacin 250 MG 750 MG PO (11:46)
--- NOTE | 2021-06-25 15:40 | PDOC.CMDIS ---
- If Service Date Differs Date of service: 06/25/21 Time of Service: 15:40 LACE Index Scoring Tool - Questions: Length of Stay (in days): 2 Acuity (Admit via E.D.?): Yes Comorbidities: Congestive Heart Failure E.D. Visits: 1 - Answers: Total Score: 8 Risk of Readmission: Low Risk Care Management Discharge Reason for Hospitalization: Asthma and Pneumonia Discharge Plan: Ysabel will return home today with no new services. She will be driven home via private vehicle by family. she will follow up with her PCP and discharge plan of care. CM sent a referral to [facility] for smoking cessation support. Patient/Family Education Needs: Review discharge instructions regarding activity levels and medications, discussion of self care needs including ask me three.
== END 2021-06-25 11:57 | disposition home or self-care (01) ==
LOC: ER 07:59 → MS 09:22
PROVIDERS: Nurse Practitioner Family; Admitting Provider Internal Medicine; Emergency Provider Student in an Organized Health Care Education/Training Program; PCP Family Medicine; Visit Provider Internal Medicine
DX: J18.9 Pneumonia, unspecified organism (principal); J44.0 Chronic obstructive pulmonary disease with (acute) lower respiratory infection; J44.1 Chronic obstructive pulmonary disease with (acute) exacerbation; Z23 Encounter for immunization; F17.210 Nicotine dependence, cigarettes, uncomplicated; R09.02 Hypoxemia
CPT/HCPCS: 36415; 80048; 80053; 82805; 84145; 87040; 87449; 87635; 90686; 93005; 94640; 96361; 96365; 96367; 96375; 99285; J1650; 71045; 83735; 84484; 85025; 87070; 87205; 93010; 99217; 99220; 99225; G0378; J0696; J1956; J2930; J7512; J7620

== ENCOUNTER → 2021-10-21 00:22 | Outpatient (CLI) | payer BC, SELFPAY ==
--- NOTE | 2021-10-21 06:30 | DI.RAD_ITS ---
Exam(s) XR CHEST 2V PA LATERAL EXAM: XR CHEST 2V PA LATERAL CLINICAL HISTORY: f/u abnormal CXR from PNEUMONIA,J18.9 TECHNIQUE: COMPARISON: CR,XR XR PORTABLE CHEST AP from 06/23/2021 FINDINGS: The heart is not enlarged. Upper lung zones are clear. No pleural effusion seen. There are questionable streaky opacities in the lung bases bilaterally on the frontal film, lateral f ilm shows some questionable streaky densities projected anteriorly. Mediastinal contour is grossly unremarkable. IMPRESSION: Question nonspecific radiodensities of the lower lung ortiz, chronic versus acute, if there is a cli nical suspicion of disease additional evaluation with CT may be considered RADIATION DOSE DELIVERED: Total DLP
== END ==
PROVIDERS: PCP Family Medicine; Visit Provider Student in an Organized Health Care Education/Training Program
DX: J18.9 Pneumonia, unspecified organism (principal); R91.8 Other nonspecific abnormal finding of lung field
CPT/HCPCS: 71046

== ENCOUNTER 2021-10-27 03:55 | Outpatient (CLI) | payer BC, SELFPAY ==
[2021-10-27] MEDS: Albuterol HFA 18 GM 200 PUFF INH IH (14:46)
[2021-10-27] MEDS: Inhaler, Assist Device 1 EACH MC (14:46)
== END 2021-10-27 03:56 | disposition home or self-care (01) ==
PROVIDERS: PCP Family Medicine; Visit Provider Student in an Organized Health Care Education/Training Program
DX: F17.210 Nicotine dependence, cigarettes, uncomplicated (principal); R94.2 Abnormal results of pulmonary function studies
CPT/HCPCS: 94060; 94726; 94729

== ENCOUNTER 2022-04-01 13:07 | Outpatient (CLI) | payer BC, SELFPAY ==
--- NOTE | 2022-04-01 | DI.RAD_ITS ---
Exam(s) XR FOOT LT COMPLETE EXAM: XR FOOT LT COMPLETE CLINICAL HISTORY: PAIN IN LEFT ANKLE, PAIN IN LEFT FOOT. TECHNIQUE: 2D digital imaging was performed. COMPARISON: No exams were available for comparison FINDINGS: 3 views Three weight-bearing views reveal no evidence of acute fracture nor diastasis of the Emilie bari joint. There is moderate degenerative change in the great toe metatarsophalangeal joint. Calcification is noted in the posterior plantar fascia. IMPRESSION: No fracture evident. DATA REPOSITORY: RADIATION DOSE DELIVERED:
--- NOTE | 2022-04-01 | DI.RAD_ITS ---
Exam(s) XR ANKLE LT COMPLETE EXAM: XR ANKLE LT COMPLETE CLINICAL HISTORY: PAIN IN LEFT ANKLE, PAIN IN LEFT FOOT. TECHNIQUE: 2D digital imaging was performed. COMPARISON: No exams were available for comparison FINDINGS: 3 views No evidence of acute fracture or widening of the ankle mortise. Talar dome unremarkable. No promine nt soft tissue swelling. Small calcification noted in the posterior plantar fascia just anterior to the attachment site on the inferior calcaneus. There is no evidence of osseous tarsal coalition. IMPRESSION: DATA REPOSITORY: RADIATION DOSE DELIVERED:
--- NOTE | 2022-04-01 14:08 | DI.VRAD_ITS ---
PROCEDURE INFORMATION: Exam: XR Left Ankle Exam date and time: 04/01/2022 1:31 PM Age: 51 years old Clinical indication: Other: Left ankle pain after injury 03/31/2022, R/O sprain vs FX; Patient HX: Left ankle pain, R/O sprain vs FX; Additional info: Weightbearing images TECHNIQUE: Imaging protocol: Radiologic exam of the Left ankle. Views: 3 or more views. COMPARISON: CR XR FOOT LT COMPLETE 04/01/2022 1:27 PM FINDINGS: Bones/joints: There is no evidence of acute fracture.There is no evidence of malalignment or dislocation. Soft tissues: Normal. IMPRESSION: There is no evidence of acute fracture.There is no evidence of malalignment or dislocation. Dictated and Authenticated by: Caitlin Claire MD. Ordering:CHOLO Salazar MD
--- NOTE | 2022-04-01 14:09 | DI.VRAD_ITS ---
PROCEDURE INFORMATION: Exam: XR Left Foot Exam date and time: 04/01/2022 1:27 PM Age: 51 years old Clinical indication: Other: Left foot pain, after injury 03/31/2022; Patient HX: R/O sprain vs FX, concerned for lisfranc injury; Additional info: Weightbearing images TECHNIQUE: Imaging protocol: Radiologic exam of the Left foot. Views: 3 or more views. COMPARISON: No relevant prior studies available. FINDINGS: Bones/joints: Degenerative changes in the 1st metatarsal-phalangeal joint. There is no evidence of acute fracture.There is no evidence of malalignment or dislocation. Soft tissues: Normal. IMPRESSION: There is no evidence of acute fracture.There is no evidence of malalignment or dislocation. Dictated and Authenticated by: Caitlin Claire MD. Ordering:CHOLO Salazar MD
== END 2022-04-01 13:27 ==
PROVIDERS: PCP Family Medicine; Visit Provider Physician Assistant Medical
DX: M25.572 Pain in left ankle and joints of left foot (principal); M79.672 Pain in left foot; M72.2 Plantar fascial fibromatosis
CPT/HCPCS: 73610; 73630

== ENCOUNTER 2022-07-25 10:55 | Emergency (ER) | payer BC, SELFPAY ==
[2022-07-25 10:59] VITALS: BP 156/87; PULSE 97; TEMP 37; O2SAT 97
[2022-07-25 11:19] VITALS: RESP 18
[2022-07-25 11:25] VITALS: BP 145/81; PULSE 80; RESP 18; O2SAT 99
--- NOTE | 2022-07-25 11:34 | DI.US_ITS ---
Exam(s) US LOWER EXTREMITY VENOUS LT EXAM: US LOWER EXTREMITY VENOUS LT CLINICAL HISTORY: LT calf pain TECHNIQUE: Grayscale, color, and doppler imaging of the deep venous system of the left lower extremi ty was performed. COMPARISON: No exams were available for comparison FINDINGS: There is no evidence of intraluminal thrombus and there is normal compression and augmentation demons trated within the common femoral vein, femoral vein, and popliteal vein. In the ipsilateral calf the interrogated veins also exhibit normal compression/ augmentation properti es. The ipsilateral saphenofemoral junction is patent. IMPRESSION: 1. No evidence of DVT in the left lower extremity. DATA REPOSITORY:
[2022-07-25] MEDS: Acetaminophen 325 MG TAB 650 MG PO (12:38)
--- NOTE | 2022-07-25 13:32 | ED.GENADUL_ITS ---
Discharge Plan Disposition Patient Disposition: Home Condition: Stable Discharge Details Clinical Impression: Calf pain Primary Care Provider: Rickie Mc ED Provider: Lesa Abarca Home Meds and New Rx's Prescriptions: New cyclobenzaprine 10 mg tablet 10 mg PO TID PRNQty: 14 0RF Continued varenicline 1 mg tablet 1 mg PO BID Qty: 56 7RF Mucinex 1,200 mg tablet extended release 12hr 1,200 mg PO BID Stiolto Respimat 2.5-2.5 mcg/actuation mist 2 puff inhalation DAILY Qty: 4 5RF Advair HFA 45-21 mcg/actuation HFA aerosol inhaler 2 puff inhalation BID Qty: 8 12RF hydroxyzine HCl 25 mg tablet 25 mg PO PRN PRN Label Comments: TAKE 1 TABLET BY MOUTH EVERY 6 HOURS NEEDED FOR ITCHING. citalopram 20 mg Tablet 40 mg PO DAILY albuterol sulfate [ProAir HFA] 90 mcg/actuation HFA aerosol inhaler 2 puff inhalation QID PRNQty: 8.5 0RF Rx Instructions: Take as needed for wheezing or SOB Discharge Instructions Instructions: Leg Pain (ED) Additional Instructions: Take ibuprofen and Tylenol as needed for pain Take Flexeril as needed for muscle pain You may ice or apply warm to the affected area Repeat ultrasound in 1 week with persistent pain Weightbearing as tolerated Stand Alone Forms: Work Release Referrals: Rickie Mc [Primary Care Provider] - Discharge Data Discharge Date/Time-TO BE ENTERED AT DEPARTURE: 07/25/22 14:08 Medical Decision Making This 52-year-old female presents with left calf pain that started yesterday worsening today Denies any known trauma to the affected area, neurovascularly intact, ultrasound does not show evidence of acute abnormality Repeat ultrasound in 1 week with persistent pain recommended Medical Records Medical records reviewed: Yes I reviewed the patient's medical records. HPI General Date/Time Provider Initiated Documentation: 07/25/22 11:34 . HPI Narrative: This 52-year-old female presents with lower back and calf pain. She states the Pain started early yesterday. She denies any trauma. She denies any chest pain or shortness of breath. She denies history of similar symptoms in the past. Denies history of coagulopathy. Related Data Home Medications Medication Instructions Recorded Confirmed citalopram 20 mg tablet 40 mg PO DAILY 06/23/21 07/25/22 albuterol sulfate 90 mcg/actuation 2 puff inhalation QID PRN #8.5 06/25/21 07/25/22 aerosol inhaler (ProAir HFA) grams varenicline 1 mg tablet 1 mg PO BID #56 tabs 01/16/22 07/25/22 fluticasone propionate 45 2 puff inhalation BID #8 grams 07/11/22 07/25/22 mcg-salmeterol 21 mcg/actuation HFA inhaler (Advair HFA) tiotropium 2.5 mcg-olodaterol 2.5 2 puff inhalation DAILY #4 grams 07/11/22 07/25/22 mcg/actuation mist for inhalation (Stiolto Respimat) guaifenesin 1,200 mg tablet, 1,200 mg PO BID 07/19/22 07/25/22 extended release 12 hr (Mucinex) cyclobenzaprine 10 mg tablet 10 mg PO TID PRN #14 tabs 07/25/22 hydroxyzine HCl 25 mg tablet 25 mg PO PRN PRN 07/25/22 07/25/22 Previous Rx's Medication Instructions Recorded albuterol sulfate 90 mcg/actuation 2 puff inhalation QID PRN #8.5 06/25/21 aerosol inhaler (ProAir HFA) grams varenicline 1 mg tablet 1 mg PO BID #56 tabs 01/16/22 fluticasone propionate 45 2 puff inhalation BID #8 grams 07/11/22 mcg-salmeterol 21 mcg/actuation HFA inhaler (Advair HFA) tiotropium 2.5 mcg-olodaterol 2.5 2 puff inhalation DAILY #4 grams 07/11/22 mcg/actuation mist for inhalation (Stiolto Respimat) cyclobenzaprine 10 mg tablet 10 mg PO TID PRN #14 tabs 07/25/22 Allergies Allergy/AdvReac Type Severity Reaction Status Date / Time No Known Allergies Allergy Unverified 07/25/22 11:02 General Stated Complaint: Vascular APOLLO: 3 Review of Systems All systems reviewed & are unremarkable except as noted in HPI and below PFSH All Active Problems (Updated 07/25/22 @ 13:35 by SARAHI Avina) Calf pain (Acute) Nicotine dependence, cigarettes, uncomplicated (Acute) COPD (chronic obstructive pulmonary disease) (Chronic) Abnormal chest CT (Acute) Abnormal finding on chest xray (Acute) Dyspnea (Chronic) Medical History (Updated 07/25/22 @ 13:35 by SARAHI Avina) Community acquired pneumonia Hypoxemia Social History Smoking/Tobacco Use Status: Current every day Tobacco Type: cigarettes Tobacco: How many years used: 20 Smoking risk assessment performed?: Yes Drug use: Daily Substance use type: marijuana Do you feel safe at home: Yes Do you feel safe in your relationship?: Yes Exam Const General: cooperative, comfortable and no acute distress Resp Effort & Inspection: normal respiratory effort Cardio Rate: regular rate Rhythm: regular rhythm Other: Distal pulses intact Skin General skin exam: no rashes or lesions noted Neuro General: patient alert and patient oriented x3 Extrem Other: Left calf tenderness reproducible on exam, neurovascularly intact Course Vital Signs Vital signs: Vital Signs Temperature 37.0 C 07/25/22 10:59 Pulse 97 H 07/25/22 10:59 Blood Pressure 156/87 H 07/25/22 10:59 Pulse Oximetry 97 07/25/22 10:59 Temperature 37.0 C 07/25/22 10:59 Temperature Source Temporal Artery Scan 07/25/22 10:59 Pulse 80 07/25/22 11:25 Respiratory Rate 18 07/25/22 11:25 Respiratory Effort 07/25/22 11:19 Respiratory Depth Normal 07/25/22 11:19 Respiratory Pattern Normal 07/25/22 11:19 Blood Pressure 145/81 H 07/25/22 11:25 Blood Pressure Position Sitting 07/25/22 10:59 Pulse Oximetry 99 07/25/22 11:25 Oxygen Delivery Method Room Air 07/25/22 11:25 Oxygen Flow Rate 0 07/25/22 11:25 Pain Level 8 07/25/22 11:25 PAWSS Have you Been Recently Intoxicated or Drunk Within the Last 30 days?: No Have you Ever Experienced Previous Episodes of Alcohol Withdrawal?: No Have you ever Experienced Withdrawal Seizures?: No Have you ever Experienced Delirium Tremens(DT)s?: No Have you ever undergone Alcohol Rehabilitation Treatment (i.e, inpt ot outpatient treatment programs)?: No Have you ever Experienced Blackouts?: No Have you ever Combined Alcohol with other Downers within the last 90 days?: No Have you ever Combined Alcohol with any other Substance of Abuse during the last 90 days?: No Positive Blood Alcohol level on Presentation? [PCS.BAL]: No Evidence of Increased Autonomic Activity (i.e. HR>120, tremor, sweating, agitation, nausea)?: No Result: 0
== END 2022-07-25 14:08 | disposition home or self-care (01) ==
PROVIDERS: Emergency Provider Physician Assistant; PCP Family Medicine
DX: M79.662 Pain in left lower leg (principal)
CPT/HCPCS: 99284; 93971; 99283

== ENCOUNTER 2023-08-10 15:12 | Outpatient (REF) | payer BC, SELFPAY ==
[2023-08-10 14:15] LABS: Source Nasal/Nares
[2023-08-10 16:01] LABS: COVID-19 PCR Negative (Negative)
== END 2023-08-10 15:13 | disposition home or self-care (01) ==
LOC: LBN 15:12
PROVIDERS: PCP Family Medicine; Visit Provider Physician Assistant Medical
DX: J06.9 Acute upper respiratory infection, unspecified (principal); Z20.822 Contact with and (suspected) exposure to COVID-19; R07.0 Pain in throat
CPT/HCPCS: 87635; 87070

== ENCOUNTER 2023-11-22 06:34 | Emergency (ER) | payer BC, SELFPAY ==
[2023-11-22 06:42] VITALS: BP 178/95; PULSE 110; RESP 20; TEMP 36.6; O2SAT 94
--- NOTE | 2023-11-22 06:45 | DI.RAD_ITS ---
Exam(s) XR TIB/FIB LT XR ANKLE LT COMPLETE EXAM: XR ANKLE LT COMPLETE and XR tib/fib LT CLINICAL HISTORY: fall, swelling, pain with eversion/inversion, TECHNIQUE: 2D digital imaging was performed of the left tib/fib and ankle. Six images were obtained . AP, lateral and oblique views were obtained. COMPARISON: CR,XR XR FOOT LT COMPLETE from 04/01/2022 CR,XR XR ANKLE LT COMPLETE from 04/01/2022 FINDINGS: BONES: There is a transverse fracture through the distal left lateral malleolus. There is 2 mm distr action of the fracture. There is also a comminuted nondisplaced fracture through the base of the med ial malleolus. No bony destructive lesion is seen. JOINTS:The ankle mortise is normally aligned. SOFT TISSUE: There is soft tissue swelling about the ankle, particularly laterally. IMPRESSION: Fractures involving both the medial lateral malleoli as described above. There is soft tissue swelli ng around the ankle, particularly laterally. DATA REPOSITORY: RADIATION DOSE DELIVERED:
--- NOTE | 2023-11-22 06:50 | ED.GENADUL_ITS ---
Discharge Plan Discharge Details Chief Complaint: Orthopedic Primary Care Provider: Rickie Mc ED Provider: Sudha Branham Home Meds and New Rx's Prescriptions: No Action Spiriva Respimat 1.25 mcg/actuation mist 2 puff inhalation DAILY Qty: 4 8RF Advair HFA 45-21 mcg/actuation HFA aerosol inhaler See Rx Instructions .ROUTE .COMPLEX Qty: 12 12RF Dose Instruction: INHALE TWO PUFFS INTO THE LUNGS TWO TIMES A DAY Rx Instructions: INHALE TWO PUFFS INTO THE LUNGS TWO TIMES A DAY Stiolto Respimat 2.5-2.5 mcg/actuation mist INHALATION Patient Comments: INHALE 2 PUFFS INTO THE LUNGS ONCE A DAY albuterol sulfate [ProAir HFA] 90 mcg/actuation HFA aerosol inhaler 2 puff inhalation QID PRNQty: 8.5 0RF Rx Instructions: Take as needed for wheezing or SOB HPI General Mode of arrival: ambulatory . Date/Time Provider Initiated Documentation: 11/22/23 06:44 . Limitations to Documentation: no limitations . Information obtained by: patient . HPI Narrative: 53yo F with hx COPD presenting with left ankle pain after a fall. Yesterday evening around 6pm tripped over dog, twisted ankle (not sure in which direction). Able to bear weight after the event but was quite painful. Took ibuprofen, pain remained severe and she was unable to sleep. No numbness or tingling to foot. Did not strike her head. Denies pain or injury elsewhere. She is otherwise in her usual state of health with no fevers, chills, rash, nasuea, vomtiing, chest pain, shortness of breath, abdominal pain, or other concerns. Related Data Home Medications Medication Instructions Recorded Confirmed albuterol sulfate 90 mcg/actuation 2 puff inhalation QID PRN #8.5 06/25/21 11/22/23 aerosol inhaler (ProAir HFA) grams tiotropium bromide 1.25 2 puff inhalation DAILY #4 grams 12/25/22 11/22/23 mcg/actuation mist for inhalation (Spiriva Respimat) fluticasone propionate 45 See Rx Instructions .Route 09/03/23 11/22/23 mcg-salmeterol 21 mcg/actuation .COMPLEX #12 grams HFA inhaler (Advair HFA) tiotropium 2.5 mcg-olodaterol 2.5 inhalation 11/22/23 mcg/actuation mist for inhalation (Stiolto Respimat) Previous Rx's Medication Instructions Recorded albuterol sulfate 90 mcg/actuation 2 puff inhalation QID PRN #8.5 06/25/21 aerosol inhaler (ProAir HFA) grams tiotropium bromide 1.25 2 puff inhalation DAILY #4 grams 12/25/22 mcg/actuation mist for inhalation (Spiriva Respimat) fluticasone propionate 45 See Rx Instructions .Route 09/03/23 mcg-salmeterol 21 mcg/actuation .COMPLEX #12 grams HFA inhaler (Advair HFA) Allergies Allergy/AdvReac Type Severity Reaction Status Date / Time varenicline [From Chantix] AdvReac Mild Nausea Verified 07/26/23 14:42 General Stated Complaint: Orthopedic APOLLO: 4 Review of Systems Narrative: see HPI Exam Narrative Exam Narrative: General: Alert, well appearing, tearful. Head: Normocephalic, atraumatic Neck: Trachea midline, ?Neck supple. Cardiac: ?No cyanosis. Well perfused. Resp: No respiratory distress. Speaking in full sentences. . Abd: ?Non-distended Extremities: ?Left ankle swollen and echymotic. Sensation intact to light touch throughout ankle and foot. DP pulse present. Able to move toes freely. Motion at ankle limited 2/t pain. Minimal pain with passive flexion/extension, severe pain with inversion/eversion. No pain or effusion at knee. Neurologic: GCS 15. ? Moves all extremities freely against gravity Course Vital Signs Vital signs: Vital Signs Temperature 36.6 C 11/22/23 06:42 Pulse 110 H 11/22/23 06:42 Respiratory Rate 20 11/22/23 06:42 Blood Pressure 178/95 H 11/22/23 06:42 Pulse Oximetry 94 11/22/23 06:42 Temperature 36.6 C 11/22/23 06:42 Temperature Source Temporal Artery Scan 11/22/23 06:42 Pulse 110 H 11/22/23 06:42 Respiratory Rate 20 11/22/23 06:42 Blood Pressure 178/95 H 11/22/23 06:42 Pulse Oximetry 94 11/22/23 06:42 Oxygen Delivery Method Room Air 11/22/23 06:42 Oxygen Flow Rate 0 11/22/23 06:42 Pain Level 8 11/22/23 06:42 Medical Decision Making 53yo F with hx COPD presenting with left ankle pain after a fall. Yesterday evening around 6pm tripped over dog, twisted ankle (not sure in which direction); able to bear weight after the event. Hypertensive and tachycardic on arrival, suspect component of pain. Will give tylenol and toradol for pain control. On exam she does have significant ankle swelling and echymosis, no clear deformity, pain with eversion/inversion. Neurovascular intact; strength testing limited 2/t pain. Not concerning for acute vascular or nerve injury; would not get advanced imaging/CT at this time. Do not suspect tachycardia 2/t to blood loss; will not get labs. Most likely sprain vs fracture; will get plain films to further evaluate. Signed out to oncoming physician, plan to followup XR and reassess for pain control/ability to ambulate. Quality:SDOH Health Related Social Needs: No Data to Display PFSH All Active Problems (Updated 08/25/22 @ 00:03 by RUEL SANTIAGO) Nicotine dependence, cigarettes, uncomplicated (Acute) COPD (chronic obstructive pulmonary disease) (Chronic) Abnormal chest CT (Acute) Abnormal finding on chest xray (Acute) Dyspnea (Chronic) Medical History (Updated 08/25/22 @ 00:03 by RUEL SANTIAGO) Hypoxemia Community acquired pneumonia Social History Smoking/Tobacco Use Status: Current every day Tobacco Type: cigarettes Tobacco: How many years used: 20 Smoking risk assessment performed?: Yes Drug use: Daily Substance use type: marijuana Do you feel safe at home: Yes Do you feel safe in your relationship?: Yes Sign Out Sign Out Data: Sign Out Comment: Twisted ankle last night, swollen. Pending plain films, reassessment for pain control and ability to ambulate Last updated by Sudha Branham MD at 11/22/23 07:05
[2023-11-22] MEDS: Ketorolac 15 MG/ML VIAL IM (06:57)
[2023-11-22] MEDS: Acetaminophen 500 MG TAB 1000 MG PO (06:57)
--- NOTE | 2023-11-22 08:07 | ED.PROG_ITS ---
Date of service: 11/22/23 Time of Service: 08:14 Medical Decision Making Patient was signed out to me by my colleague Dr. Baca. Please refer to HPI, physical exam, assessment and plan. At time of signout we are awaiting x-ray results. X-ray shows evidence of by mall fracture. Patient was splinted with a sugar-tong and posterior. She was made nonweightbearing and given crutches. I discussed the case with orthopedics Dr. Dobson, his office will contact her for discussion of potential surgical options. Patient will be discharged home. Recommend NSAIDs and ice for pain control. Discussed red flags for which to return. I have extensively reviewed the treatment plan and discharge instructions with the patient. I have addressed all patient concerns at this time. The patient was made aware of what symptoms to monitor for that would warrant a return to the emergency department. Discussed the plan with the patient, they demonstrate verbal understanding and agreement with our assessment and plan at this time. The documentation in this chart was dictated using [employer] dictation software. Please excuse any dictation errors. FINDINGS: BONES: There is a transverse fracture through the distal left lateral malleolus. There is 2 mm distraction of the fracture. There is also a comminuted nondis placed fracture through the base of the medial malleolus. No bony destructive lesion is seen. JOINTS:The ankle mortise is normally aligned. SOFT TISSUE: There is soft tissue swelling about the ankle, particularly laterally. IMPRESSION: Fractures involving both the medial lateral malleoli as described above. There is soft tissue swelling around the ankle, particularly laterally. FINDINGS: BONES: There is a transverse fracture through the distal left lateral malleolus. There is 2 mm distraction of the fracture. There is also a comminuted nondisplaced fracture through the base of the medial malleolus. No bony destructive lesion is seen. JOINTS:The ankle mortise is normally aligned. SOFT TISSUE: There is soft tissue swelling about the ankle, particularly laterally. IMPRESSION: Fractures involving both the medial lateral malleoli as described above. There is soft tissue swelling around the ankle, particularly laterally. Quality:SDOH Health Related Social Needs: No Data to Display Sign Out Sign Out Data: Sign Out Comment: Twisted ankle last night, swollen. Pending plain films, reassessment for pain control and ability to ambulate Last updated by Sudha Branham MD at 11/22/23 07:05 Discharge Plan Disposition Patient Disposition: Home Condition: Good Discharge Details Chief Complaint: Orthopedic Clinical Impression: Bimalleolar fracture of left ankle Primary Care Provider: Rickie Mc ED Provider: Valeriano Pitts Home Meds and New Rx's Prescriptions: No Action Spiriva Respimat 1.25 mcg/actuation mist 2 puff inhalation DAILY Qty: 4 8RF Advair HFA 45-21 mcg/actuation HFA aerosol inhaler See Rx Instructions .ROUTE .COMPLEX Qty: 12 12RF Dose Instruction: INHALE TWO PUFFS INTO THE LUNGS TWO TIMES A DAY Rx Instructions: INHALE TWO PUFFS INTO THE LUNGS TWO TIMES A DAY Stiolto Respimat 2.5-2.5 mcg/actuation mist 2 puff INHALATION DAILY Patient Comments: INHALE 2 PUFFS INTO THE LUNGS ONCE A DAY albuterol sulfate [ProAir HFA] 90 mcg/actuation HFA aerosol inhaler 2 puff inhalation QID PRNQty: 8.5 0RF Rx Instructions: Take as needed for wheezing or SOB Discharge Instructions Instructions: Ankle Fracture (ED) Additional Instructions: At this time you have a fracture of your distal tibia. Fibula. This may require surgery. The orthopedics office will be contacting you shortly. Please take Tylenol and Motrin as needed for pain. Please avoid any weightbearing. If you develop a viselike sensation on your ankle, if your toes change color, or if the pain becomes severe, please loosen up the entire splint and contact your provider immediately. If you notice any worsening of your symptoms, or any new symptoms such as vomiting, diarrhea, fever, chills, shortness of breath, chest pain, numbness, weakness, or fainting , please return immediately to the emergency department for reevaluation. Please follow up with your primary care provider as soon as possible for reassessment and reevaluation. As always, it was a pleasure participating in your medical care today. Stand Alone Forms: Work Release Referrals: Jb Dobson MD [ [facility] STAFF PHYSICIAN] - Rickie Mc [Primary Care Provider] -
[2023-11-22 08:36] VITALS: BP 158/91; PULSE 92; RESP 18; O2SAT 94
== END 2023-11-22 08:39 | disposition home or self-care (01) ==
PROVIDERS: Emergency Provider Student in an Organized Health Care Education/Training Program; PCP Family Medicine
DX: S82.842A Displaced bimalleolar fracture of left lower leg, initial encounter for closed fracture (principal); F17.210 Nicotine dependence, cigarettes, uncomplicated; W01.0XXA Fall on same level from slipping, tripping and stumbling without subsequent striking against object, initial encounter; Y93.01 Activity, walking, marching and hiking; Y92.89 Other specified places as the place of occurrence of the external cause
CPT/HCPCS: 00123; 96372; 99284; 73590; 73610; 99283; J1885

== ENCOUNTER 2023-11-23 11:57 | Day surgery (SDC) | payer BC, SELFPAY ==
[2023-11-23] VITALS (9 sets, daily range): BP systolic 139–150; BP diastolic 75–91; PULSE 90–110; RESP 12–22; TEMP 36.1–36.7; O2SAT 92–99; BMI 31.9
--- NOTE | 2023-11-23 11:15 | W.PM.DSUDISC ---
Date of service: 11/23/23 Time of Service: 17:30 Discharge Plan Disposition Patient Disposition: Home Condition: Stable Discharge Details Reason For Visit: left ankle orif Attending Provider: Jb Dobson Home Meds and New Rx's Prescriptions: New aspirin 81 mg tablet,delayed release (DR/EC) 81 mg PO DAILY 14 Days Qty: 14 0RF naproxen 250 mg tablet 250 - 500 mg PO BID PRNQty: 40 0RF Rx Instructions: take with a meal oxycodone 5 mg tablet 5 - 10 mg PO Q4H MDD 30 mg PRN (Reason: moderate to severe pain) Qty: 18 0RF Continued Spiriva Respimat 1.25 mcg/actuation mist 2 puff inhalation DAILY Qty: 4 8RF Advair HFA 45-21 mcg/actuation HFA aerosol inhaler See Rx Instructions .ROUTE .COMPLEX Qty: 12 12RF Dose Instruction: INHALE TWO PUFFS INTO THE LUNGS TWO TIMES A DAY Rx Instructions: INHALE TWO PUFFS INTO THE LUNGS TWO TIMES A DAY acetaminophen 500 mg capsule 1,000 mg PO DIRECTED albuterol sulfate [ProAir HFA] 90 mcg/actuation HFA aerosol inhaler 2 puff inhalation QID PRNQty: 8.5 0RF Rx Instructions: Take as needed for wheezing or SOB Discharge Instructions Additional Instructions: Surgery: Left ankle ORIF Activity: Nonweightbearing left ankle with crutches. May rest splint on ground while standing. Strict elevation to minimize swelling discomfort. Wiggle toes to increase circulation and prevent stiffness. Prescriptions: Aspirin 81 mg take 1 daily to prevent a blood clot for 2 weeks, starting tomorrow morning Naproxen 250 mg take 1-2 every 12 hours with a meal as needed for moderate pain Oxycodone 5 mg take 1-2 every 4-6 hours as needed for severe pain You may use [id number] Tylenol (acetaminophen) as needed for mild pain. These pain medications may be taken all at once or in different combinations as needed. Also, recommend Colace (docusate) as a stool softener as surgery and pain medicine cause constipation. You may try [id number] diphenhydramine (Benadryl) 25-50 mg nightly as a sleep aid Dressings: Leave splint and dressing in place until follow-up. Keep clean and dry at all times. Follow-up: 10-[address] Dobson. My office will call Sunday to make this appointment. You may take off the leg compression stockings this evening at home. You may also leave them on a few days longer if you have a history of leg swelling or edema. Let us know right away if you develop any redness, drainage, fevers, chest pain, or trouble breathing. Do not drink alcohol or drive for at least 24 hours after anesthesia. Please call the office during business hours with any questions or concerns. Stand Alone Forms: Anesthesia Discharge Inst., Magda.Nerve Block Instructions, Bharat Borges (DSU) Discharge Orders Discharge Orders: Discharge Order (Routine); Ordered 11/23/23 Ordered By: Manuela Holden DS: Diagnosis Discharge Diagnosis (1) Bimalleolar fracture of left ankle: Status: Acute
--- NOTE | 2023-11-23 11:21 | OCONE_ITS ---
Date of service: 11/23/23 Time of Service: 13:00 Assessment and Plan Assessment and plan (1) Bimalleolar fracture of left ankle: Status: Acute Assessment and plan: 53-year-old female with left ankle bimalleolar mildly displaced fracture Trip and fall left ankle injury 2 nights ago, feels like it might of moved increasing pain since last night. No prior broken bones. No pre-existing foot or ankle problems. No diabetes neuropathy. Active smoker. Trying to reduce. Works [employer] on feet or seated long shifts at the [employer]. Interested in proceeding with surgery after discussion last night in order to expedite healing, more predictable return to activities and work. No other injuries. Denies any chest pain, shortness of breath, fevers chills or other major problems. Complains of throbbing discomfort only about the ankle. Left ankle splint removed, rather tight and indenting pressure from the fiberglass. Moderate edema and ecchymosis although skin wrinkles just fine about the medial lateral and anterior ankle. Calf nontender. Readily demonstrates intact motor toes. Sensation tact throughout light touch, no paresthesias. 1+ dorsalis pedis pulse. Toe motion without issues. Calf soft nontender. No signs of blood clot. Minor abrasion anterior proximal khan. No other injuries. Left ankle x-rays reviewed showing low bimalleolar medial lateral ankle fracture with mild displaced. Discussed thoroughly with phone last night and again in person today. Reviewed nonoperative trial versus surgical management. Decision proceed with surgery today left ankle ORIF The risks, benefits, and alternatives were thoroughly discussed. Patient was counseled regarding pain management, expected postoperative course, and recovery timeline. All questions were answered. Informed consent was obtained. Agree and understand treatment plan. Follow up 10-14 days after surgery. Will call if any changes or concerns. Breathing comfortably on room air. No coughs or wheezes. 2+ left radial pulse. Regular rate and rhythm. PFSH All Active Problems Bimalleolar fracture of left ankle (Acute 11/21/23) Nicotine dependence, cigarettes, uncomplicated (Acute) COPD (chronic obstructive pulmonary disease) (Chronic) Abnormal chest CT (Acute) Abnormal finding on chest xray (Acute) Dyspnea (Chronic) Medical History Hypoxemia Community acquired pneumonia Social History Smoking/Tobacco Use Status: Current every day Tobacco Type: cigarettes Tobacco: How many years used: 20 Smoking risk assessment performed?: Yes Drug use: Daily Substance use type: marijuana Details: last THC use was yesterday evening Housing: house Do you feel safe at home: Yes Do you feel safe in your relationship?: Yes
--- NOTE | 2023-11-23 11:23 | W.PM.OP ---
Date of service: 11/23/23 Time of Service: 15:00 Operative Note Operative Note DATE OF PROCEDURE: 11/23/23 PRE-OP DIAGNOSIS: Left bimalleolar ankle fracture POST-OP DIAGNOSIS: same PROCEDURE: Left bimalleolar ankle fracture ORIF, CPT #38775 SURGEON: Jb Dobson WASH AND GREASER: Manuela Holden ANESTHESIA TYPE: Local By Surgeon and General LMA/ETT Refer to Anesthesia Record ESTIMATED BLOOD LOSS: 5 TOURNIQUET TIME: 0 COMPLICATIONS: None Patient was transported to: PACU Patient's condition: stable Implants: Synthes 4.0 mm partially-threaded cancellous 40 mm screws x 2 Indications: Please see complete medical record for details. Procedure Description: In the operating room, general anesthesia was induced. The patient was positioned supine on the operating room table. All bony prominences were well-padded. Preoperative antibiotics were administered. The Left ankle was prepped and draped in the usual sterile fashion. The correct patient, procedure, and side of the procedure were all verified prior to incision. The direct lateral approach to the distal fibula fracture was used, soft tissues protected swept to the sides, the fracture was only mildly displaced and readily reduced with internal rotation. Given the far distal nature of the fracture, suture?only repair was chosen. The 2.5 mm drill was used to make 2 cortical holes proximal and distal to the fracture. A suture tape was then directed through these holes across the fracture site in a [id number] fashion and secured. An additional proximal and distal hole was drilled and a larger pass with a suture tape used to finish fixation of the distal fracture, which was stable to testing. A second small curvilinear approach was made this to the medial malleolus. Soft tissue was retracted, coagulation achieved small saphenous nerve branches. The start point was exposed leaving soft tissue attachments only marking the areas for screw placement. Direct pressure was used to improve the already reasonable fracture alignment. Fluoroscopic guidance was used to direct the 2.5 mm drill from the tip of the malleolus into the distal tibia and then placed a 40 mm 4.0 mm cancellous partially-threaded screw. A second screw was then placed more anterior to this initial screw similarly. X-ray showed appropriate hardware placement and fracture alignment. The ankle mortise was stable to testing, the syndesmosis was stable to external rotation stress. Medial lateral wounds were copiously irrigated normal saline. Subcutaneous tissue closed using 2-0 Monocryl buried erupted. 3-0 nylon used horizontal mattress to close the skin. Xeroform applied over the incisions followed by gauze, sterile soft roll, and instruments placed in a short leg AO plaster splint. The patient awoke from anesthesia without complication and was transferred to the recovery room in a stable condition.
[2023-11-23] MEDS: Lactated Ringers 1,000 ML 30 ML IV (13:00)
--- NOTE | 2023-11-23 13:49 | W.ANESPRE ---
General Info Date of Service Date Performed: 11/23/23 Height: 5 ft 5 in Weight: 87.1 kg Body Mass Index (BMI): 31.9 Surgical Procedure: Operation Date: 11/23/23 15:10 Proposed Procedure Side Surgeon p Ankle ORIF Left Jb Dobson MD Meds Allergies and Home Medications Allergies Allergy/AdvReac Type Severity Reaction Status Date / Time varenicline [From Chantix] AdvReac Mild Nausea Verified 11/23/23 12:42 Home Medication Medication Instructions Recorded albuterol sulfate 90 mcg/actuation 2 puff inhalation QID PRN #8.5 06/25/21 aerosol inhaler (ProAir HFA) grams tiotropium bromide 1.25 2 puff inhalation DAILY #4 grams 12/25/22 mcg/actuation mist for inhalation (Spiriva Respimat) fluticasone propionate 45 See Rx Instructions .Route 09/03/23 mcg-salmeterol 21 mcg/actuation .COMPLEX #12 grams HFA inhaler (Advair HFA) acetaminophen 500 mg capsule 1,000 mg PO DIRECTED 11/23/23 Current Visit Medications: Current Medications Generic Name Dose Route Start Last Admin Trade Name Freq PRN Reason Stop Dose Admin Ringer's Solution 1,000 mls @ 30 mls/hr 11/23/23 06:00 11/23/23 13:00 IV 12/23/23 23:59 30 mls/hr INFUSION CESAR Administration Cefazolin Sodium/Dextrose 2 gm in 50 mls @ 100 mls/hr 11/23/23 06:00 Ancef Duplex IVPB 12/23/23 23:59 PREOP CESAR Tranexamic Acid/Sodium Chloride 1,000 mg in 100 mls @ 600 mls/hr 11/23/23 06:00 IVPB 12/23/23 23:59 PREOP CESAR IV Miscellaneous Supplies 1 each 11/23/23 06:00 Iv Access IV 12/23/23 23:59 DIRECTED CESAR Oxycodone HCl 0 mg 11/23/23 11:15 Oxycodone 5 Mg Tab PO 12/23/23 11:14 Q3H PRN PRN Pain Sodium Chloride 0 ml 11/23/23 06:00 Normal Saline Flush 10 Ml Syr IV 12/23/23 23:59 PRN PRN Sodium Chloride 0 ml 11/23/23 06:00 Normal Saline 10 Ml Vial IJ 12/23/23 23:59 DIRECTED PRN Sterile Water 0 ml 11/23/23 06:00 Water,Injection,Sterile 10 Ml Vial IJ 12/23/23 23:59 DIRECTED PRN PFSH Active Problems Active Problems: Problem Status Onset Code Bimalleolar fracture of left ankle 11/21/23 S82.842A Nicotine dependence, cigarettes, uncomplicated F17.210 COPD (chronic obstructive pulmonary disease) J44.[address] R93.89 Abnormal finding on chest xray R93.89 Dyspnea R06.00 Medical History Medical History Hypoxemia Community acquired pneumonia Tobacco Smoking/Tobacco Use Status: Current every day Tobacco Type: cigarettes Substance Use Substance use: Daily Substance use type: marijuana Details: last THC use was yesterday evening Vital Signs and Lab Results Vital Signs Most Recent Vital Signs in EMR: Most Recent Vital Signs Temp Pulse Resp BP Pulse Ox 36.1 C L 110 H 16 148/88 H 96 11/23/23 12:26 11/23/23 12:26 11/23/23 12:26 11/23/23 12:26 11/23/23 12:26 Lab Results Blood Type / Crossmatch: No Data to Display Complete Blood Count: No Data to Display Complete Metabolic Panel: No Data to Display Liver Function Panel: No Data to Display Coagulation Panel: No Data to Display Cardiac Panel: No Data to Display Arterial Blood Gas: No Data to Display Venous Blood Gas: No Data to Display Pancreas Panel: No Data to Display Thyroid Panel: No Data to Display Infectious Disease: No Data to Display Blood Cultures: No Data to Display Toxicology Panel: No Data to Display Panel: No Data to Display Imaging and Studies Imaging and Studies Study information below may be from another EMR and interpreted by another provider. Please see original notes in EMR for more complete details. EKG Summary: DATE/TIME OF SERVICE: 06/23/21614 : 1970 PERFORMING LOCATION: ER APPROVED REPORT Exam: Resting ECG Reason for Exam: sob Patient Location: E HR:78 bpm ECG Measurements Heart Rate 78 AXIS MS 192 P 57 QRSd 89 QRS 55 QT 406 T32 QTc 462 Conclusion Sinus rhythm...normal P axis, V-rate 60- 99 Physician: No stemi, unremarkable Anesthesia Assessment and Plan Anesthesia History Personal History: No History of General Anesthesia Family History: No Family History of Anesthesia Complications Exercise Tolerance Exercise Tolerance: Metabolic Equivalents>4 Pertinent Negatives Pertinent Negatives: No Symptoms of GERD, No Major Cardiovascular Symptoms or Complaints and No History of CVA/TIA Cardiac & Pulmonary Exam Cardiac Exam: Normal S1/S2 Heart Sounds Pulmonary Exam: Clear Bilateral Breath Sounds Implantable Cardiac Device Does patient have a Pacemaker or an ICD?: No Airway Exam Known Difficult Airway: No Mallampati Class: 2 Mouth Opening: Normal (> 3cm) Thyromental Distance: Greater than 3 cm Neck Range of Motion: Full ROM Neck Circumference: Normal Teeth Condition: Normal Dentition ASA Classification ASA Score: ASA 2 Emergency Case?: No NPO Status NPO Status: NPO Clears >2 hours, Solids >8 hours Status Status: Not Relevant due to Medical History Anesthesia Plan Resuscitation Status: Full Code Anesthesia Technique: General Anesthesia Airway Planned: LMA Pain Management: Surgeon and patient request nerve block Monitors Used: Standard Monitors
[2023-11-23] MEDS: Ondansetron 4 MG/2 ML VIAL IVP (14:40)
[2023-11-23] MEDS: fentaNYL 100 MCG/2 ML VIAL IVP (14:42)
[2023-11-23] MEDS: ceFAZolin 2 GM/50 ML BAG IVPB (15:02)
[2023-11-23] MEDS: TRANEXAMIC ACID/SOD. CHL. 1,000 MG/100 ML BAG 600 MG IVPB (15:11)
--- NOTE | 2023-11-23 15:32 | W.ANESNERVE ---
Nerve Block Single Injection Procedure Date and Time Date Performed: 11/23/23 Procedure Start: 14:40 Location Where Procedure Performed Procedure Location: Day Surgery Unit Reason Performed: Postoperative Analgesia Requesting Provider: Jb Dobson Timeout Performed Timeout Performed: Yes Monitoring Used ECG, Blood Pressure, SpO2 and See EMR for corresponding vital signs Sterility Sterility: Hand Hygiene, Surgical Cap, Surgical Mask, Sterile Gloves and Chlorhexidine Sedation Given During Procedure Sedation Given (Indicate Dose Given): Versed IV Dose:: 1mg Patient Mental Status Patient Mental Status: Awake Nerve Block 1st Nerve Block: Laterality: Left Block Type: Popliteal Sciatic Ultrasound Image Saved?: Yes Needle / Catheter Used: 100mm SonoPlex II Local Anesthetic Bolus (Indicate Dose Given): Lidocaine used for local infiltration of skin, Injected in 3-5ml increments after negative blood aspiration, Bupivacaine 0.5% Dose:: 15ml and Exparel Dose:: 10ml Additives (Indicate Dose Given): None Ultrasound: Sterile probe cover and gel used Nerve Stimulator: Not Used and Other (Due top fracture and pain) Paresthesia: None Post Procedure Pain score (0-10): 3 Procedure Tolerated: No Complications and Patient tolerated well Procedure Outcome: Successful Performed By: Amrik Grande 2nd Nerve Block: Laterality: Left Block Type: Adductor Canal Ultrasound Image Saved?: Yes Needle / Catheter Used: 100mm SonoPlex II Local Anesthetic Bolus (Indicate Dose Given): Lidocaine used for local infiltration of skin, Injected in 3-5ml increments after negative blood aspiration, Bupivacaine 0.25% Dose:: 10ml and Exparel Dose:: 10ml Additives (Indicate Dose Given): None Ultrasound: Sterile probe cover and gel used Nerve Stimulator: Not Used Paresthesia: None Procedure Tolerated: No Complications and Patient tolerated well Procedure Outcome: Successful Performed By: Amrik Grande
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
--- NOTE | 2023-11-23 16:58 | W.ANESPOSTOP ---
Postoperative Evaluation Date, Time and Location Date Performed: 11/23/23 Time Performed: 16:58 Patient Location: PACU Vital Signs Most Recent Imported Vital Signs: Most Recent Vital Signs Temp Pulse Resp BP Pulse Ox 36.4 C L 94 H 19 144/91 H 92 11/23/23 16:44 11/23/23 16:44 11/23/23 16:44 11/23/23 16:44 11/23/23 16:44 Pain Score Most Recent Pain Score: Most Recent Pain Score Pain Level 5 11/23/23 16:44 Assessment Mental Status: Awake (Alert & Oriented to Patient Baseline) Airway and Respiratory Function: Patent airway with normal (patient baseline) respiratory exam Cardiovascular Function: Hemodynamically Stable Hydration Status: Adequately Hydrated Nausea & Vomiting: No Nausea or Vomiting Pain: Pain is tolerable per patient Peripheral Nerve Block: Regional nerve block not resolved at time of post operative discharge
[2023-11-23] MEDS: oxyCODONE 5 MG TAB PO (17:05)
== END 2023-11-23 17:40 | disposition home or self-care (01) ==
PROVIDERS: Visit Provider Student in an Organized Health Care Education/Training Program
PROC: (CPT 27814; principal; 2023-11-23 15:00)
DX: S82.842A Displaced bimalleolar fracture of left lower leg, initial encounter for closed fracture (principal); W19.XXXA Unspecified fall, initial encounter; W54.8XXA Other contact with dog, initial encounter; F17.210 Nicotine dependence, cigarettes, uncomplicated
CPT/HCPCS: 27814; 76000; 76942; 73600; C9290; J0665; J0690; J1100; J1885; J2250; J2405; J2704; J3010

== ENCOUNTER 2023-12-04 15:43 | Outpatient (CLI) | payer BC, SELFPAY ==
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
== END 2023-12-04 15:44 | disposition home or self-care (01) ==
LOC: DIORS 15:43
PROVIDERS: PCP Family Medicine; Visit Provider Physician Assistant
DX: S82.842D Displaced bimalleolar fracture of left lower leg, subsequent encounter for closed fracture with routine healing (principal); X58.XXXD Exposure to other specified factors, subsequent encounter
CPT/HCPCS: 73610

== ENCOUNTER 2023-12-11 15:42 | Outpatient (CLI) | payer BC, SELFPAY ==
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
== END 2023-12-11 15:43 | disposition home or self-care (01) ==
LOC: DIORS 15:42
PROVIDERS: PCP Family Medicine; Visit Provider Physician Assistant
DX: S82.842D Displaced bimalleolar fracture of left lower leg, subsequent encounter for closed fracture with routine healing (principal); X58.XXXD Exposure to other specified factors, subsequent encounter
CPT/HCPCS: 73610

== ENCOUNTER 2024-01-01 15:39 | Outpatient (CLI) | payer BC, SELFPAY ==
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
== END 2024-01-01 15:40 | disposition home or self-care (01) ==
LOC: DIORS 15:40
PROVIDERS: PCP Family Medicine; Visit Provider Student in an Organized Health Care Education/Training Program
DX: S82.842D Displaced bimalleolar fracture of left lower leg, subsequent encounter for closed fracture with routine healing (principal); X58.XXXD Exposure to other specified factors, subsequent encounter
CPT/HCPCS: 73610

== ENCOUNTER 2024-01-30 14:19 | Outpatient (CLI) | payer BC, SELFPAY ==
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
== END 2024-01-30 14:20 | disposition home or self-care (01) ==
LOC: DIORS 14:19
PROVIDERS: PCP Family Medicine; Visit Provider Student in an Organized Health Care Education/Training Program
DX: S82.842A Displaced bimalleolar fracture of left lower leg, initial encounter for closed fracture (principal); T81.31XA Disruption of external operation (surgical) wound, not elsewhere classified, initial encounter
CPT/HCPCS: 73610

== ENCOUNTER 2024-02-08 10:07 | Emergency (ER) | payer BC, SELFPAY ==
[2024-02-08 10:10] VITALS: BP 177/100; PULSE 108; RESP 16; TEMP 36.3; O2SAT 97
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
[2024-02-08] MEDS: Lidocaine 5% Patch 1 PATCH TP (11:29)
== END 2024-02-08 11:53 | disposition home or self-care (01) ==
PROVIDERS: Emergency Provider Registered Nurse Emergency; PCP Family Medicine
DX: S22.31XA Fracture of one rib, right side, initial encounter for closed fracture (principal); S00.03XA Contusion of scalp, initial encounter; S40.021A Contusion of right upper arm, initial encounter; S40.022A Contusion of left upper arm, initial encounter; S20.212A Contusion of left front wall of thorax, initial encounter; S20.211A Contusion of right front wall of thorax, initial encounter; Y04.8XXA Assault by other bodily force, initial encounter
CPT/HCPCS: 99283; 71046; 71110

== ENCOUNTER 2024-02-27 16:02 | Outpatient (CLI) | payer BC, SELFPAY ==
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
== END 2024-02-27 16:03 | disposition home or self-care (01) ==
LOC: DIORS 16:02
PROVIDERS: PCP Family Medicine; Visit Provider Student in an Organized Health Care Education/Training Program
DX: S82.842A Displaced bimalleolar fracture of left lower leg, initial encounter for closed fracture; L02.416 Cutaneous abscess of left lower limb; M85.872 Other specified disorders of bone density and structure, left ankle and foot
CPT/HCPCS: 73610

== ENCOUNTER 2024-11-20 16:01 | Emergency (ER) | payer BC, SELFPAY ==
[2024-11-20 16:06] VITALS: BP 137/74; PULSE 107; RESP 18; TEMP 36.9; O2SAT 98
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
[2024-11-20 17:46] VITALS: BP 150/84; PULSE 103; RESP 20; O2SAT 100
[2024-11-20] MEDS: Acetaminophen 500 MG TAB 1000 MG PO (18:03)
[2024-11-20] MEDS: Ibuprofen 600 MG TAB PO (18:04)
[2024-11-20] MEDS: Lidocaine 5% Patch 1 PATCH TP (18:04)
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
== END 2024-11-21 06:09 | disposition home or self-care (01) ==
PROVIDERS: Emergency Provider Emergency Medicine; PCP Family Medicine
DX: S20.212A Contusion of left front wall of thorax, initial encounter (principal); J44.9 Chronic obstructive pulmonary disease, unspecified; F17.210 Nicotine dependence, cigarettes, uncomplicated; Y04.2XXA Assault by strike against or bumped into by another person, initial encounter; Y93.89 Activity, other specified; Y92.018 Other place in single-family (private) house as the place of occurrence of the external cause
CPT/HCPCS: 99283; 71046; 71100